=== PATIENT | female | born 1980 | race Native Hawaiian/Other Pacific Islander ===

== ENCOUNTER 2017-02-14 21:23 | Emergency (ER) | payer OTHER ==
[~2017-02-14] VITALS: Ht 157.5 cm; Wt 117.9 kg
[~2017-02-14 21:23] MED LIST: CETI10TA PO; OMEPRAZOLE40 MG OR
[2017-02-14 22:32] LABS: PLATELET COUNT 241 K/uL (152-353)
[2017-02-14 22:41] LABS: POTASSIUM 4.3 mmol/L (3.6-5.2); SODIUM 138 mmol/L (136-145)
[2017-02-14 23:15] VITALS: BP 133/85; TEMP 98.6
== END 2017-02-14 23:20 | disposition home or self-care (01) ==
LOC: ED 21:23
PROVIDERS: Emergency Medicine
DX: R55 Syncope and collapse (principal); R07.89 Other chest pain; R06.2 Wheezing
CPT/HCPCS: 80053; 82550; 83880; 84484; 85027; 93005; 99283

== ENCOUNTER 2017-02-17 14:06 | Outpatient (CLI) | payer OTHER | END 2017-02-17 19:20 | disposition home or self-care (01) | LOC: RAD 14:06 | DX: R07.89 Other chest pain (principal) ==

== ENCOUNTER 2017-04-15 20:05 | Emergency (ER) | payer OTHER ==
[~2017-04-15] VITALS: Ht 157.5 cm; Wt 113.4 kg
[2017-04-15 20:10] VITALS: TEMP 98.2
[2017-04-15 20:37] LABS: PLATELET COUNT 309 K/uL (152-353)
[2017-04-15 20:43] LABS: POTASSIUM 3.7 mmol/L (3.6-5.2); SODIUM 134 mmol/L (136-145)
[2017-04-15 21:45] VITALS: BP 120/76
== END 2017-04-15 21:45 | disposition home or self-care (01) ==
LOC: ED 20:05
PROVIDERS: Emergency Medicine
DX: N20.1 Calculus of ureter (principal); N23 Unspecified renal colic
CPT/HCPCS: 36415; 80053; 81002; 85027; 96361; 96374; 96375; 99284; J1170; J1885; J2405

== ENCOUNTER 2017-11-20 13:19 | Emergency (ER) | payer OTHER ==
[~2017-11-20] VITALS: Ht 157.5 cm; Wt 113.4 kg
[2017-11-20 16:03] VITALS: BP 140/90; TEMP 98.2
== END 2017-11-20 16:15 | disposition home or self-care (01) ==
LOC: ED 13:19
DX: R07.89 Other chest pain (principal); J40 Bronchitis, not specified as acute or chronic
CPT/HCPCS: 99282

== ENCOUNTER 2018-05-03 08:51 | Day surgery (SDC) | payer OTHER ==
[~2018-05-03] VITALS: Ht 30.5 cm; Wt 0.5 kg
[2018-05-03 10:42] LABS: PLATELET COUNT 262 K/uL (152-353)
[2018-05-03 10:51] LABS: POTASSIUM 3.7 mmol/L (3.6-5.2)
== END 2018-05-03 13:50 | disposition home or self-care (01) ==
LOC: OR 08:51
PROVIDERS: Student in an Organized Health Care Education/Training Program
PROC: 0DJ08ZZ Inspection of Upper Intestinal Tract, Via Natural or Artificial Opening Endoscopic (ICD-10-PCS; principal; 2018-05-03)
DX: K21.0 Gastro-esophageal reflux disease with esophagitis (principal); R10.13 Epigastric pain; Z86.19 Personal history of other infectious and parasitic diseases
CPT/HCPCS: 80053; 85027; J2001; J2250; J2704

== ENCOUNTER 2019-02-26 14:54 | Emergency (ER) | payer OTHER ==
[~2019-02-26] VITALS: Ht 157.5 cm; Wt 117.9 kg
[~2019-02-26 14:54] MED LIST changes: -OMEPRAZOLE40 MG OR; +OMEPRAZOLE40 MG PO
[2019-02-26] MEDS ORDERED: PHENTERMINE37.5 MG PO (15:14)
[2019-02-26 17:23] VITALS: BP 133/76; TEMP 98.1
== END 2019-02-26 17:30 | disposition home or self-care (01) ==
LOC: ED 14:54
DX: K02.9 Dental caries, unspecified (principal); K04.7 Periapical abscess without sinus
CPT/HCPCS: 96372; 99283; J1885; J2175

== ENCOUNTER 2019-03-30 19:55 | Emergency (ER) | payer OTHER ==
[~2019-03-30] VITALS: Ht 157.5 cm; Wt 117.9 kg
[~2019-03-30 19:55] MED LIST changes: +PHENTERMINE37.5 MG PO
[2019-03-30 21:55] VITALS: BP 137/79; TEMP 99.9
== END 2019-03-30 22:00 | disposition home or self-care (01) ==
LOC: ED 19:55
DX: N30.91 Cystitis, unspecified with hematuria (principal); M54.5 Low back pain
CPT/HCPCS: 81000; 87077; 87086; 87088; 87186; 96372; 99283; J1885

== ENCOUNTER 2019-06-28 09:36 | Outpatient (CLI) | payer OTHER | END 2019-06-28 23:45 | disposition home or self-care (01) | LOC: US 09:36 | DX: K42.0 Umbilical hernia with obstruction, without gangrene (principal) ==

== ENCOUNTER 2021-11-19 17:15 | Inpatient (IN) | payer OTHER ==
[~2021-11-19] VITALS: Ht 157.5 cm; Wt 120.3 kg
[2021-11-19 17:38] VITALS: BP 113/75; TEMP 99.5
[2021-11-19 18:35] VITALS: BP 131/96
[2021-11-19 18:44] LABS: PLATELET COUNT 256 K/uL (152-353)
[2021-11-19 18:56] LABS: POTASSIUM 3.4 mmol/L (3.6-5.2)
[2021-11-19 19:00] VITALS: BP 142/82
[2021-11-19 19:31] VITALS: BP 129/75
[2021-11-19 20:00] VITALS: BP 149/82; TEMP 98.6
--- NOTE | 2021-11-19 22:00 | NUR ---
PT TO ROOM 1108 FROM ER VIA WHEELCHAIR WITH NO S/S OF ACUTE DISTRESS NOTED, PT ALERT AND ORIENTED. ADMITTED FOR ACUTE NON TRAUMATIC KIDNEY INJURY. 20G IV LOCK INTACT TO R AC, RESP RATE NONLABORED, PT DENIES ANY NEEDS AT THIS TIME. EDUCATED ABOUT HER PLAN OF CARE. ENCOURAGED TO CALL NEEDED, RAILS UP, BED IN LOW POSITION, CALL LIGHT IN REACH, PT ACKNOWLEDGES UNDERSTANDING.
[2021-11-19 22:53] VITALS: BP 108/76; TEMP 98.6; Ht 157.5 cm; Wt 120.3 kg
[2021-11-20] VITALS: BP 111/76; TEMP 98.4
--- NOTE | 2021-11-20 02:55 | NUR ---
PT RESTING ON L SIDE IN BED WITH EYES CLOSED, NO S/S OF PAIN OR DISTRESS NOTED, RESP RATE NONLABORED, IV INTACT TO R AC WITH FLUID ONGOING, WILL MONITOR, RAILS UP, BED IN LOW POSITION, CALL LIGHT IN REACH.
[2021-11-20 04:00] VITALS: BP 106/36; TEMP 98.5
--- NOTE | 2021-11-20 04:06 | NUR ---
PT FOUND RESTING IN BED WITH EYES CLOSED AND LIGHT SNORING NOTED, NO S/S OF PAIN OR DISTRESS NOTED, NO S/S OF PAIN SINCE PRN MORPHINE GIVEN AND NO S/S OF REACTIONS NOTED TO MEDICATION. IV INTACT WITH FLUID ONGOING, WILL MONITOR, RAILS UP, BED IN LOW POSITION, CALL LIGHT IN REACH.
[2021-11-20 04:38] LABS: POTASSIUM 3.9 mmol/L (3.6-5.2)
[2021-11-20 04:44] LABS: PLATELET COUNT 245 K/uL (152-353)
--- NOTE | 2021-11-20 06:56 | NUR ---
GAVE ZOFRAN 4MG SLOW IVP PRN FOR C/O NAUSEA AFTER ATTEMPTING TO EAT SOME JELLO, PT STATES SHE TOLERATES APPLE JUICE AND THE ICE WITH NO PROBLEMS. WILL MONITOR CLOSELY.
[2021-11-20 08:00] VITALS: BP 116/75; TEMP 98.2
[2021-11-20 09:12] LABS: PLATELET COUNT 252 K/uL (152-353)
[2021-11-20 09:34] LABS: POTASSIUM 3.4 mmol/L (3.6-5.2)
--- NOTE | 2021-11-20 10:00 | NUR ---
PROVIDED AN UPDATE TO DR. RETANA VIA TELEPHONE. PHYSICIAN V/O UNDERSTANDING AND STATED HE WOULD EVALUATE PATIENT AT HOSPITAL TODAY.
[2021-11-20 12:00] VITALS: BP 104/56; TEMP 98.7
[2021-11-20 16:00] VITALS: BP 123/77; TEMP 98.5
[2021-11-20 20:00] VITALS: BP 149/82; TEMP 98.6
--- NOTE | 2021-11-20 20:15 | NUR ---
PT AWAKE, ALERT, AND ORIENTED SITTING UP IN BED WITH NO S/S OF PAIN OR ACUTE DISTRESS NOTED, DENIES ANY PROBLEMS AT THIS TIME AND STATES SHE FEELS ALITTLE BETTER ESPECIALLY SINCE SHE WAS ABLE TO WIPE OFF WITH WET WASH CLOTHS AT BEDSIDE. 20G IV INTACT TO R AC AREA WITH D5 1/2 NS INFUSING AT 150ML/HR, ON ROOM AIR, RESP RATE NONLABORED, ENCOURAGED TO CALL NEEDED, RAILS UP, BED IN LOW POSITION, CALL LIGHT IN REACH.
--- NOTE | 2021-11-20 23:16 | NUR ---
PT RESTING IN BED ON HER SIDE WITH EYES CLOSED WITH SNORING NOTED, NO S/S OF PAIN OR DISTRESS NOTED, RESP RATE NONLABORED, IV INTACT TO R AC WITH FLUID ONGOING, WILL MONITOR, RAILS UP, BED IN LOW POSITION, CALL LIGHT IN REACH.
[2021-11-21] VITALS (7 sets, daily range): BP systolic 102–148; BP diastolic 62–90; TEMP 98–99
--- NOTE | 2021-11-21 02:50 | NUR ---
RESTING IN BED IN POSITION OF COMFORT WITH EYES CLOSED AND SNORING NOTED AT TIMES, RESP RATE NONLABORED, ON ROOM AIR, 20G IV INTACT TO R AC WITH FLUID ONGOING PER ORDER, WILL MONITOR CLOSELY, RAILS UP, BED IN LOW POSITION, CALL LIGHT IN REACH.
--- NOTE | 2021-11-21 04:30 | NUR ---
RESTING WITH EYES CLOSED, NO S/S OF PAIN OR DISTRESS NOTED, WILL MONITOR CLOSELY, IV INTACT WITH FLUID ONGOING, RESP RATE NONLABORED, RAILS UP, BED IN LOW POSITION.
[2021-11-21 09:35] LABS: PLATELET COUNT 228 K/uL (152-353)
[2021-11-21 09:44] LABS: POTASSIUM 2.9 mmol/L (3.6-5.2)
--- NOTE | 2021-11-21 11:00 | NUR ---
PATIENT COMPLAINS OF NAUSEA AND PAIN. PRN MORPHINE AND ZOFRAN GIVEN AT THIS TIME.
--- NOTE | 2021-11-21 18:45 | NUR ---
PATIENT COMPLAINS OF HEARTBURN AND STATES THAT SHE NORMALLY TAKES OMEPRAZOLE. WILL DISCUSS WITH DR. BUENROSTRO. TO RESTART.
[2021-11-22 04:21] VITALS: BP 119/74; TEMP 98.6
--- NOTE | 2021-11-22 05:16 | NUR ---
0300 PT AWAKE REQUESTING IV BE "UNDONE" SO SHE CAN BATHE OFF. PT'S IV DISCONNECTED WHILE PT BATHED HERSELF WITHOUT ASSIST. NO C/O NOR S/S OF DISTRESS DURING THIS TIME.
[2021-11-22 08:00] VITALS: BP 142/79; TEMP 98.4
[2021-11-22 08:21] LABS: PLATELET COUNT 216 K/uL (152-353)
[2021-11-22 08:23] LABS: POTASSIUM 3.5 mmol/L (3.6-5.2)
[2021-11-22 12:00] VITALS: BP 139/77; TEMP 98.3
--- NOTE | 2021-11-22 14:59 | NUR ---
1320: PT HAS VISITOR IN ROOM. REQUESTED WHEELCHAIR TO GO OUTSIDE. VISITOR TOOK PT OUTSIDE IN WHEELCHAIR.
[2021-11-22 16:05] VITALS: BP 131/87; TEMP 99.7
--- NOTE | 2021-11-22 18:04 | NUR ---
PT AWAKE, ALERT, DENIES PAIN AT THIS TIME. PT WATCHING TV.
[2021-11-22 20:03] VITALS: BP 139/85; TEMP 98.4
--- NOTE | 2021-11-22 22:04 | NUR ---
PT ALERT AND ORIENTED* 4. ACCEPTED HS MEDICATION WITHOUT COMPLICATIONS. PT REQUIRES NO ASSISTANCE ADLS. PT ABLE TO TRANSFER SELF WITH SUPERVISION. PT IV INTACT WITH INFUSION GOING AT 75ML/HR. PT VOICED COMPLAINT OF LOWER BACK PAIN 4/10. PRN PAIN MEDICATION GIVEN WITH HS MEDICATION. PT VOICED PAIN DDECREASED TO 2/10 30 MINS AFTER ADMINSTRATION. NO ACUTE DISTRESS NOTED WILL CONTINUE TO MONITOR. CALL LIGHT WITHIN REACH. PT EDUCATED TO CALL FOR ASSISTANCE WITH GETTTING OUT OF BED TP PREVENT INJURY.
[2021-11-22 23:41] VITALS: BP 122/66; TEMP 98.4
[2021-11-23 04:27] VITALS: BP 132/81; TEMP 98.4
[2021-11-23 05:08] LABS: PLATELET COUNT 243 K/uL (152-353)
[2021-11-23 05:09] LABS: POTASSIUM 3.6 mmol/L (3.6-5.2)
[2021-11-23 08:00] VITALS: BP 128/72; TEMP 98.9
--- NOTE | 2021-11-23 11:15 | NUR ---
REVIEWED DISCHARGE INSTRUCTIONS WITH PATIENT, PT V/O UNDERSTANDING AND DENIES ANY FURTHER QUESTIONS OR C/O AT THIS TIME. IV D/C'D WITH TIP IN TACT.
--- NOTE | 2021-11-23 11:25 | NUR ---
PATIENT D/C'D AND TAKEN TO POV VIA WHEELCHAIR. PATIENT TRANSFERRED TO POV WITHOUT DIFFICULTY. PATIENT DENIES ANY PAIN, NEEDS OR C/O A THIS TIME. NAD NOTED WITH PATIENT AT THIS TIME.
--- NOTE | 2021-11-25 10:37 | NUR ---
LAB - STOOL SPECIMEN SHOWING ORGANISM SALMONELLA SPECIES. VERBAL ORDER GIVEN FOR LEVAQUIN 500MG PO QD X DAYS WITH 0 REFILLS. MEDICATION CALLED TO [facility] PER PATIENT REQUEST.
== END 2021-11-23 11:27 | disposition home or self-care (01) | DRG 683 ==
LOC: ED 17:15 → MED/SURG 20:50
PROVIDERS: Emergency Medicine Emergency Medical Services; Family Medicine; ADMIT Internal Medicine Endocrinology, Diabetes & Metabolism; ATTEND Internal Medicine Endocrinology, Diabetes & Metabolism
DX: N17.8 Other acute kidney failure (principal); E87.1 Hypo-osmolality and hyponatremia; Z68.42 Body mass index [BMI] 45.0-49.9, adult; K52.89 Other specified noninfective gastroenteritis and colitis; E87.6 Hypokalemia; K21.9 Gastro-esophageal reflux disease without esophagitis; Z72.0 Tobacco use; E66.01 Morbid (severe) obesity due to excess calories
CPT/HCPCS: 36415; 80048; 80053; 82570; 83690; 83735; 84100; 84300; 85007; 85027; 87015; 87045; 87077; 87185; 87186; 87635; 87651; 87899; 96360; 96375; 99284; J1885; J2270; J2405; J3490; U0003

== ENCOUNTER 2022-09-11 09:15 | Outpatient (CLI) | payer OTHER | END 2022-09-11 18:50 | disposition home or self-care (01) | LOC: MRI 09:15 | PROVIDERS: ATTEND Registered Nurse | DX: M54.41 Lumbago with sciatica, right side (principal) ==

== ENCOUNTER 2023-01-07 12:31 | Outpatient (CLI) | payer OTHER | END 2023-01-07 21:26 | disposition home or self-care (01) | LOC: MAMMO 12:31 | PROVIDERS: ATTEND Specialist | DX: N64.4 Mastodynia (principal); N63.20 Unspecified lump in the left breast, unspecified quadrant; N63.10 Unspecified lump in the right breast, unspecified quadrant; M54.17 Radiculopathy, lumbosacral region | CPT/HCPCS: G0279 ==

== ENCOUNTER 2023-02-04 14:40 | Outpatient (CLI) | payer OTHER ==
[2023-02-04 15:26] LABS: PLATELET COUNT 319 K/uL (152-353)
== END 2023-02-04 19:39 | disposition home or self-care (01) ==
LOC: LABW 14:40
PROVIDERS: ATTEND Pain Medicine Interventional Pain Medicine
DX: Z79.891 Long term (current) use of opiate analgesic (principal)
CPT/HCPCS: 36415; 85027; 93005

== ENCOUNTER 2023-09-01 08:39 | Outpatient (CLI) | payer OTHER | END 2023-09-01 19:08 | disposition home or self-care (01) | LOC: MAMMO 08:39 | PROVIDERS: ATTEND Specialist | DX: R92.8 Other abnormal and inconclusive findings on diagnostic imaging of breast (principal) | CPT/HCPCS: G0279 ==

== ENCOUNTER 2024-01-11 15:28 | Outpatient (CLI) | payer OTHER ==
[2024-01-11 16:01] LABS: PLATELET COUNT 343 K/uL (152-353)
== END 2024-01-11 20:21 | disposition home or self-care (01) ==
LOC: LABW 15:28
PROVIDERS: ATTEND Surgery
DX: Z01.818 Encounter for other preprocedural examination (principal); K43.2 Incisional hernia without obstruction or gangrene
CPT/HCPCS: 85027